=== PATIENT | male | born 1965 | race Caucasian/White ===

== ENCOUNTER → 2017-01-19 | Outpatient (CLI) | payer BC ==
[~2017-01-19] MED LIST: /MOXI40TA OR; ACET65TA OR; ALLE25CA OR; AMBI10TA OR; AMLO10TA PO; ATIV1TAB2 OR; AZEL0.05 OD; BALANCED SALT SOLN OPHTH 15 ML BTL XX SCH; CEFD1CAP8 PO; CEFD300C OR; CIPR0.3S OD; CIPR500T3 PO; CLIN300C2 PO; COLA100C2 OR; DESYREL PO; DULCOLAX PR; HYDR-3713 PO; IBUP800T23 PO; ISOVUE-300 61% 50ML VIAL (Q9967) As Ordered ONE; JARD1TAB PO; LANS15CA PO; LASI40TA OR; LEVA500T PO; METF-414 PO; NORCOTAB PO; No Historical Meds; PERC5TAB6 PO; PERC5TAB8 OR; POLY2.5S OP; PROPARACAINE 0.5% OPHTH SOL 15ML XX SCH; VICO5TAB OR; ZYLO300T OR; [UNRECOGNIZED DRUG - OTHER] PO
--- NOTE | 2017-01-19 17:07 | REP ---
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 Technique: The cannula was placed by Dr. Cordelia Duque and contrast was injected under sequential fluoroscopically obtained spot radiographs. 22 spot radiographs were obtained. Fluoroscopy time: 10 seconds. Findings: Sequential frontal spot radiographs document normal inferior and superior canaliculi. The common canaliculus and nasal lacrimal sac are dilated and obstructed. The nasal lacrimal duct is not opacified. The dilated sac is seen along the medial aspect of the orbit. 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 No filling defect is seen. Signed by Harvey Newsome MD 01/20/2017 08:01 A
== END ==
LOC: M RADPRO 14:10
PROVIDERS: ATTEND Ophthalmology
DX: H04.551 Acquired stenosis of right nasolacrimal duct (principal); Z88.0 Allergy status to penicillin
CPT/HCPCS: 68850; 70170; Q9967

== ENCOUNTER → 2017-07-14 | Outpatient (CLI) | payer BC ==
[~2017-07-14] VITALS: Ht 177.8 cm; Wt 95.3 kg
[~2017-07-14] MED LIST changes: -BALANCED SALT SOLN OPHTH 15 ML BTL XX SCH; +IBUP1TAB7 PO; -IBUP800T23 PO; -ISOVUE-300 61% 50ML VIAL (Q9967) As Ordered ONE; +LEVA1TAB2 PO; -LEVA500T PO; +LIDOCAINE 2% INJ 100 MG/5 ML SDV (FOR ANES.) As Ordered ONE; +NS 1,000 ML IV ONE; +PERC5TAB12 PO; -PERC5TAB6 PO; -PROPARACAINE 0.5% OPHTH SOL 15ML XX SCH; +PROPOFOL 200 MG/20 ML VIAL As Ordered ONE
--- NOTE | 2017-07-14 13:52 | ROOR ---
Patient Name: Brady Soriano Procedure Date: 07/14/2017 1:36 PM Date of : 1965 Age: 52 Room: [facility] Gender: Male Note Status: Finalized Procedure: Upper Endoscopy + Biopsies Indications: Heartburn, Exclusion of Monge's esophagus Providers: Fransisco Perez MD Referring MD: JACINTA SALGADO NP Requesting Provider: Medicines: Monitored Anesthesia Care Complications: No immediate complications. Procedure: Pre-Anesthesia Assessment: - The heart rate, respiratory rate, oxygen saturations, blood pressure, adequacy of pulmonary ventilation, and response to care were monitored throughout the procedure. The Endoscope was introduced through the mouth, and advanced to the second part of duodenum. The upper GI endoscopy was accomplished without difficulty. The patient tolerated the procedure well. Findings: The Z-line was variable and was found 40 cm from the incisors. Multiple biopsies were obtained with cold forceps for evaluation to rule out Monge's Esophagus randomly at the gastroesophageal junction. A small hiatal hernia was present. No other significant abnormalities were identified in a careful examination of the stomach. The exam of the duodenum was otherwise normal. Impression: - Z-line variable, 40 cm from the incisors. - Small hiatal hernia. - Multiple biopsies were obtained at the gastroesophageal junction. - The examination was otherwise normal. Recommendation: - Patient has a contact number available for emergencies. The signs and symptoms of potential delayed complications were discussed with the patient. Return to normal activities tomorrow. Written discharge instructions were provided to the patient. - High fiber diet. - Discharge patient to home. - Follow an antireflux regimen. - Continue present medications. - Await pathology results. - Telephone GI clinic for pathology results in 1 week. - Check Portal Online for Path Results.([email or web address]) - Return to referring physician. - The findings and recommendations were discussed with the patient's family. Fransisco Perez MD Fransisco Perez MD 07/14/2017 1:52:14 PM This report has been signed electronically. Number of Addenda: 0 Note Initiated On: 07/14/2017 1:36 PM Estimated Blood Loss: Estimated blood loss: none.
--- NOTE | 2017-07-14 14:06 | ROOR ---
Patient Name: Brady Soriano Procedure Date: 07/14/2017 1:37 PM Date of : 1965 Age: 52 Room: [facility] Gender: Male Note Status: Finalized Procedure: Total Colonoscopy to Cecum Indications: Screening for colorectal malignant neoplasm Providers: Fransisco Perez MD Referring MD: JACINTA SALGADO NP Requesting Provider: Medicines: Monitored Anesthesia Care Complications: No immediate complications. Procedure: Pre-Anesthesia Assessment: - The heart rate, respiratory rate, oxygen saturations, blood pressure, adequacy of pulmonary ventilation, and response to care were monitored throughout the procedure. The Colonoscope was introduced through the anus and advanced to the cecum, identified by appendiceal orifice and ileocecal valve. The colonoscopy was performed without difficulty. The patient tolerated the procedure well. The quality of the bowel preparation was good. Findings: The perianal and digital rectal examinations were normal. Non-bleeding internal hemorrhoids were found during retroflexion. The hemorrhoids were small and Grade I (internal hemorrhoids that do not prolapse). No other significant abnormalities were identified in a careful examination of the remainder of the colon. The exam was otherwise without abnormality on direct and retroflexion views. Impression: - Non-bleeding internal hemorrhoids. - The examination was otherwise normal on direct and retroflexion views. - No specimens collected. - The exam was otherwise normal to the cecum. Recommendation: - Patient has a contact number available for emergencies. The signs and symptoms of potential delayed complications were discussed with the patient. Return to normal activities tomorrow. Written discharge instructions were provided to the patient. - High fiber diet. - Discharge patient to home. - Continue present medications. - Repeat colonoscopy in 10 years for screening purposes. - Return to referring physician. - The findings and recommendations were discussed with the patient's family. Fransisco Perez MD Fransisco Perez MD 07/14/2017 2:06:08 PM This report has been signed electronically. Number of Addenda: 0 Note Initiated On: 07/14/2017 1:37 PM Estimated Blood Loss: Estimated blood loss: none.
[2017-07-14 14:40] VITALS: BP 117/62
== END | disposition home or self-care (01) ==
LOC: M OPP 12:01
PROVIDERS: ATTEND Internal Medicine Gastroenterology
DX: Z12.11 Encounter for screening for malignant neoplasm of colon (principal); K64.0 First degree hemorrhoids; R12 Heartburn; K22.8 Other specified diseases of esophagus; K44.9 Diaphragmatic hernia without obstruction or gangrene; K21.9 Gastro-esophageal reflux disease without esophagitis; Z85.72 Personal history of non-Hodgkin lymphomas; E11.9 Type 2 diabetes mellitus without complications; Z92.21 Personal history of antineoplastic chemotherapy; Z88.0 Allergy status to penicillin; Z79.84 Long term (current) use of oral hypoglycemic drugs; Z79.899 Other long term (current) drug therapy; Z87.2 Personal history of diseases of the skin and subcutaneous tissue
CPT/HCPCS: 43239; 88305; G0121

== ENCOUNTER → 2017-09-15 | Outpatient (REF) | payer BC ==
[~2017-09-15] MED LIST changes: -LIDOCAINE 2% INJ 100 MG/5 ML SDV (FOR ANES.) As Ordered ONE; -NS 1,000 ML IV ONE; -PROPOFOL 200 MG/20 ML VIAL As Ordered ONE
== END ==
LOC: M LAB REF 11:57
PROVIDERS: ATTEND Internal Medicine
DX: M10.9 Gout, unspecified (principal)

== ENCOUNTER → 2017-11-28 | Outpatient (REF) | payer BC | LOC: M SFHCLERA 14:44 | DX: J00 Acute nasopharyngitis [common cold] (principal) ==

== ENCOUNTER → 2020-10-01 | Outpatient (REF) | payer BC ==
[~2020-10-01] MED LIST changes: -/MOXI40TA OR; +AVEL1TAB2 OR; -CIPR0.3S OD; +CIPR0.3S6 OD; +HYDR-3715 PO; -NORCOTAB PO
[2020-10-01 18:20] LABS: MALB URINE SIEMENS < 5.0 MG/L; MAU/CREAT RATIO 6.4 MCG/MG (0.0-30.0)
== END ==
LOC: M LAB REF 16:57
PROVIDERS: ATTEND Nurse Practitioner Family
DX: E11.65 Type 2 diabetes mellitus with hyperglycemia (principal)

== ENCOUNTER → 2020-11-20 | Outpatient (REF) | payer BC ==
[2020-11-20 09:17] LABS: BASO % 0.7 % (0.0-1.0); EOS # 0.1 10^3/uL (0.0-0.5); EOS % 1.5 % (0.0-3.0); HEMATOCRIT 46.9 % (42.0-52.0); HEMOGLOBIN 15.1 g/dl (13.5-17.5); LYMPH # 2.2 10^3/uL (1.5-5.0); LYMPH % 36.5 % (24.0-44.0); MEAN CORPUSCULAR HEMOGLOBIN 28.9 pg (27.0-33.0); MEAN CORPUSCULAR HGB CONC 32.2 g/dl (32.0-36.5); MEAN CORPUSCULAR VOLUME 89.7 fl (80.0-96.0); MONO # 0.5 10^3/uL (0.0-0.8); MONO % 8.6 % (0.0-5.0); NEUTROPHILS # 3.1 10^3/uL (1.5-8.5); NEUTROPHILS % 51.7 % (36.0-66.0); PLATELET COUNT, AUTOMATED 202 10^3/uL (150-450); RED BLOOD COUNT 5.23 10^6/uL (4.30-6.10)
[2020-11-20 09:25] LABS: ALT/SGPT 38 U/L (12-78); BILIRUBIN,TOTAL 0.3 MG/DL (0.2-1.0); BLOOD UREA NITROGEN 14 MG/DL (7-18); CALCIUM LEVEL 8.8 MG/DL (8.5-10.1); CARBON DIOXIDE LEVEL 26 MEQ/L (21-32); CHLORIDE LEVEL 106 MEQ/L (98-107); CREATININE FOR GFR 0.81 MG/DL (0.70-1.30); GLOMERULAR FILTRATION RATE > 60.0 (>56); GLUCOSE, FASTING 151 MG/DL (70-100); LDH LACTATE DEHYDROGENASE 124 U/L (87-241); POTASSIUM SERUM 4.3 MEQ/L (3.5-5.1); SODIUM LEVEL 140 MEQ/L (136-145); TOTAL PROTEIN 5.9 GM/DL (6.4-8.2)
== END ==
LOC: M LAB REF 08:28
PROVIDERS: ATTEND Internal Medicine Hematology
DX: C82.13 Follicular lymphoma grade II, intra-abdominal lymph nodes (principal)

== ENCOUNTER → 2020-11-28 | Outpatient (CLI) | payer BC ==
[~2020-11-28] MED LIST changes: +GASTROGRAFIN SOLUTION 30ML (Q9963) As Ordered ONE; +ISOVUE-370 76% 100ML VIAL As Ordered ONE
--- NOTE | 2020-11-29 08:12 | REP ---
INDICATION: LYMPHOMA. Follow-up. COMPARISON: Comparison CT study of the neck is from May 07, 2016.. TECHNIQUE: 100 mL of intravenous Isovue 370 is administered. Helical scanning is acquired and 3 mm axial images re-formatted. Coronal and sagittal MPR images are provided. FINDINGS: Visualized paranasal sinuses are clear. No intraorbital abnormality is seen. Parotid and submandibular glands are normal and symmetric. There are scattered normal size cervical lymph nodes bilaterally. There is no evidence of lymphadenopathy. Thyroid lobes are normal and symmetric. Visualized scattered normal sized lymph nodes are unchanged from the 2016 prior study. Lung apices are clear. No bony destructive lesion is appreciated. Glottic and subglottic airway are unremarkable. Floor of mouth and tongue base appear intact. No tonsillar or peritonsillar abnormality is appreciated. No significant vascular abnormality is seen. Visualized intracranial structures are unremarkable. IMPRESSION: No neck mass or adenopathy seen. <Electronically signed by Lonny Newsome > 11/29/20 [id number]
--- NOTE | 2020-11-29 08:43 | REP ---
INDICATION: LYMPHOMA COMPARISON: 05/07/2016 TECHNIQUE: Axial contrast enhanced images from the thoracic inlet to the upper abdomen with coronal and sagittal reformations using 100 ml Isovue 370 intravenous contrast material. This CT examination was performed using the following dose reduction techniques: Automated exposure control, adjustment of mA and/or kv according to the patient's size, and use of iterative reconstruction technique. FINDINGS: Bilateral lung beard are well aerated and relatively clear. Minimal scattered scarring noted along with stable 4 mm nodule in the periphery of the left lower lobe (image 63) unchanged compared to 2016. No new significant nodule or mass lesion. No consolidation. No effusion. No pneumothorax. Tracheobronchial tree is patent. No axillary, hilar, or mediastinal adenopathy is appreciated. Further evaluation of the mediastinum demonstrates normal thoracic aorta and pulmonary vasculature. Atherosclerotic changes to the coronary arteries noted without cardiomegaly or pericardial effusion. Thyroid gland is grossly normal by CT. Musculoskeletal structures are intact and without acute osseous abnormality. Bilateral adrenal glands are normal. IMPRESSION: No acute mediastinal or pleuroparenchymal process. No adenopathy. <Electronically signed by Armin Farnsworth > 11/29/20 [id number]
--- NOTE | 2020-11-29 08:47 | REP ---
INDICATION: LYMPHOMA. COMPARISON: None TECHNIQUE: Axial contrast-enhanced images from the lung bases to the pubic symphysis using 100 cc Isovue 370 intravenous contrast material. Delayed images of the abdomen obtained along with coronal and sagittal reformations.. This CT examination was performed using the following dose reduction techniques: Automated exposure control, adjustment of mA and/or kv according to the patient's size, and the use of iterative reconstruction technique. FINDINGS: Liver demonstrates mild fatty infiltration without focal hepatic lesion. Spleen, pancreas, bilateral adrenal glands and kidneys are normal. Cholelithiasis suggested without acute cholecystitis.. The enteric system including stomach, small, and large bowel appears normal. No evidence for obstruction or acute inflammatory process. Normal terminal ileum and appendix are identified in the right lower quadrant. Few scattered diverticula noted without acute diverticulitis. Pelvis demonstrates normal bladder and age-appropriate prostate/seminal vesicles. No ascites. No free air. No intraperitoneal or retroperitoneal adenopathy. Few stable mildly prominent bilateral inguinal lymph nodes measure up to 10.5 mm short axis diameter. Abdominal aorta and vasculature appear normal. Musculoskeletal structures demonstrate stable chronic degenerative changes including chronic L5 spondylolysis with grade 1 spondylolisthesis. IMPRESSION: 1. No acute abdominopelvic pathology appreciated. No ascites or adenopathy. 2. Mild hepatosteatosis. 3. Cholelithiasis. 4. Chronic degenerative changes to the lumbosacral spine including bilateral L5 spondylolysis with grade 1 spondylolisthesis. <Electronically signed by Armin Farnsworth > 11/29/20 [id number]
== END ==
LOC: M RAD 15:25
PROVIDERS: ATTEND Internal Medicine Hematology
DX: K76.0 Fatty (change of) liver, not elsewhere classified (principal); M43.16 Spondylolisthesis, lumbar region; C82.13 Follicular lymphoma grade II, intra-abdominal lymph nodes; K80.80 Other cholelithiasis without obstruction
CPT/HCPCS: 70491; 71260; 74177; Q9963; Q9967

== ENCOUNTER → 2021-10-15 | Outpatient (CLI) | payer BC ==
[~2021-10-15] MED LIST changes: +BYDU2INJ7 SC; -GASTROGRAFIN SOLUTION 30ML (Q9963) As Ordered ONE; -ISOVUE-370 76% 100ML VIAL As Ordered ONE; +LISI10TA22 PO
== END ==
LOC: M LABSMTC 10:30
PROVIDERS: ATTEND Anesthesiology
DX: Z01.812 Encounter for preprocedural laboratory examination (principal); Z20.822 Contact with and (suspected) exposure to COVID-19

== ENCOUNTER 2021-10-20 08:01 | Day surgery (SDC) | payer BC ==
[~2021-10-20] VITALS: Ht 177.8 cm; Wt 101.8 kg
[~2021-10-20 08:01] MED LIST changes: -CEFD1CAP8 PO; +CEFD300C41 PO; +NS 1,000 ML IV ONE
[2021-10-20] MEDS ORDERED: fentaNYL 100 MCG/2 ML INJECTION As Ordered ONE (08:56)
[2021-10-20] MEDS ORDERED: propofoL 200 MG/20 ML VIAL As Ordered ONE (09:25)
[2021-10-20] MEDS ORDERED: LIDOCAINE 2% 100MG/5ML SDV (FOR ANES.) As Ordered ONE (09:25)
[2021-10-20 10:06] VITALS: BP 116/73
== END 2021-10-20 10:20 | disposition home or self-care (01) ==
LOC: M OPP 08:01
PROVIDERS: ATTEND Internal Medicine Gastroenterology
DX: Z12.11 Encounter for screening for malignant neoplasm of colon (principal); Z83.71 Family history of colonic polyps; K57.30 Diverticulosis of large intestine without perforation or abscess without bleeding; K64.0 First degree hemorrhoids; K22.89 Other specified disease of esophagus; K44.9 Diaphragmatic hernia without obstruction or gangrene; R12 Heartburn; Z79.84 Long term (current) use of oral hypoglycemic drugs; Z79.899 Other long term (current) drug therapy; Z88.0 Allergy status to penicillin; Z92.21 Personal history of antineoplastic chemotherapy; C82.90 Follicular lymphoma, unspecified, unspecified site
CPT/HCPCS: 45378; 88305; J3010

== ENCOUNTER → 2021-10-30 | Outpatient (REF) | payer BC ==
[~2021-10-30] MED LIST changes: +CEFD1CAP8 PO; -CEFD300C41 PO; -NS 1,000 ML IV ONE
[2021-10-30 10:10] LABS: CREATININE, URINE 74.9 MG/DL; MALB URINE SIEMENS < 5.0 MG/L; MAU/CREAT RATIO 6.6 MCG/MG (0.0-30.0)
== END ==
LOC: M LAB REF 09:12
PROVIDERS: ATTEND Internal Medicine Endocrinology, Diabetes & Metabolism
DX: E11.65 Type 2 diabetes mellitus with hyperglycemia (principal)

== ENCOUNTER → 2022-01-20 | Outpatient (REF) | payer BC ==
[~2022-01-20] MED LIST changes: -CEFD1CAP8 PO; +CEFD300C41 PO
[2022-01-20 10:25] LABS: BASO % 0.3 % (0.0-1.0); EOS # 0.1 10^3/uL (0.0-0.5); EOS % 0.5 % (0.0-3.0); HEMATOCRIT 46.7 % (42.0-52.0); LYMPH # 2.8 10^3/uL (1.5-5.0); LYMPH % 25.5 % (24.0-44.0); MEAN CORPUSCULAR HEMOGLOBIN 28.9 pg (27.0-33.0); MEAN CORPUSCULAR HGB CONC 32.1 g/dl (32.0-36.5); MONO # 0.7 10^3/uL (0.0-0.8); MONO % 6.2 % (2.0-8.0); NEUTROPHILS # 7.3 10^3/uL (1.5-8.5); NEUTROPHILS % 66.2 % (36.0-66.0); PLATELET COUNT, AUTOMATED 234 10^3/uL (150-450); RED BLOOD COUNT 5.19 10^6/uL (4.30-6.10); WHITE BLOOD COUNT 11.1 10^3/uL (4.0-10.0)
[2022-01-20 10:26] LABS: ALBUMIN 3.9 GM/DL (3.2-5.2); ALT/SGPT 40 U/L (12-78); BILIRUBIN,TOTAL 0.3 MG/DL (0.2-1.0); BLOOD UREA NITROGEN 20 MG/DL (7-18); CALCIUM LEVEL 9.2 MG/DL (8.5-10.1); CARBON DIOXIDE LEVEL 26 MEQ/L (21-32); CHLORIDE LEVEL 105 MEQ/L (98-107); GLOMERULAR FILTRATION RATE > 60.0 (>56); GLUCOSE, FASTING 245 MG/DL (70-100); LDH LACTATE DEHYDROGENASE 109 U/L (87-241); POTASSIUM SERUM 4.8 MEQ/L (3.5-5.1); SODIUM LEVEL 138 MEQ/L (136-145); TOTAL PROTEIN 6.1 GM/DL (6.4-8.2)
== END ==
LOC: M LAB REF 09:24
PROVIDERS: ATTEND Nurse Practitioner Family
DX: C82.13 Follicular lymphoma grade II, intra-abdominal lymph nodes (principal)

== ENCOUNTER → 2022-12-03 | Outpatient (CLI) | payer BC | LOC: M WUC 14:17 | PROVIDERS: ATTEND Physician Assistant Medical | DX: R05.9 Cough, unspecified (principal) ==

== ENCOUNTER → 2023-01-07 | Outpatient (CLI) | payer BC | LOC: M RAD 15:49 | PROVIDERS: ATTEND Physician Assistant | DX: J30.9 Allergic rhinitis, unspecified (principal) ==

== ENCOUNTER → 2023-01-22 | Outpatient (REF) | payer BC ==
[2023-01-22 08:57] LABS: BASO % 0.4 % (0.0-1.0); EOS # 0.1 10^3/uL (0.0-0.5); EOS % 1.2 % (0.0-3.0); HEMATOCRIT 49.8 % (42.0-52.0); HEMOGLOBIN 15.3 g/dl (13.5-17.5); LYMPH # 2.2 10^3/uL (1.5-5.0); LYMPH % 30.1 % (24.0-44.0); MEAN CORPUSCULAR HEMOGLOBIN 27.5 pg (27.0-33.0); MEAN CORPUSCULAR HGB CONC 30.7 g/dl (32.0-36.5); MEAN CORPUSCULAR VOLUME 89.4 fl (80.0-96.0); MONO # 0.5 10^3/uL (0.0-0.8); MONO % 6.9 % (2.0-8.0); NEUTROPHILS # 4.5 10^3/uL (1.5-8.5); NEUTROPHILS % 60.5 % (36.0-66.0); PLATELET COUNT, AUTOMATED 243 10^3/uL (150-450); RED BLOOD COUNT 5.57 10^6/uL (4.30-6.10); WHITE BLOOD COUNT 7.4 10^3/uL (4.0-10.0)
[2023-01-22 09:02] LABS: LDH LACTATE DEHYDROGENASE 133 U/L (120-246)
[2023-01-22 09:03] LABS: ALBUMIN 4.1 G/DL (3.2-5.2); ALKALINE PHOSPHATASE 74 U/L (46-116); ALT/SGPT 26 U/L (7.0-40); AST/SGOT 11 U/L (<34); BILIRUBIN,TOTAL 0.3 MG/DL (0.3-1.2); BLOOD UREA NITROGEN 14 MG/DL (9-23); CALCIUM LEVEL 9.2 MG/DL (8.5-10.1); CARBON DIOXIDE LEVEL 30 MMOL/L (20-31); CHLORIDE LEVEL 105 MMOL/L (98-107); CREATININE FOR GFR 0.72 MG/DL (0.70-1.30); GLOMERULAR FILTRATION RATE > 60.0 (>56); GLUCOSE, FASTING 196 MG/DL (60-100); POTASSIUM SERUM 4.7 MMOL/L (3.5-5.1); SODIUM LEVEL 140 MMOL/L (136-145)
== END ==
LOC: M LAB REF 08:28
PROVIDERS: ATTEND Internal Medicine Hematology
DX: C82.90 Follicular lymphoma, unspecified, unspecified site (principal)

== ENCOUNTER 2023-03-29 10:52 | Day surgery (SDC) | payer BC ==
[~2023-03-29] VITALS: Ht 175.3 cm; Wt 96.6 kg
[~2023-03-29 10:52] MED LIST changes: +CIPR0.3S37 OD; -CIPR0.3S6 OD; +TRUL0.5I
[2023-03-29] MEDS ORDERED: COCAINE 4% 4ML NASAL SOLUTION BTL As Ordered ONE (12:43)
[2023-03-29] MEDS ORDERED: OXYMETAZOLINE 0.05% NASAL SPRAY (AFRIN) As Ordered ONE ×3 (12:43→14:59)
[2023-03-29] MEDS ORDERED: LIDOCAINE W/EPINEPHRINE 1% 20ML VIAL As Ordered ONE (12:43)
[2023-03-29] MEDS ORDERED: ACETAMINOPHEN 1000MG 100ML IV BAG As Ordered ONE (13:37)
[2023-03-29] MEDS ORDERED: MIDAZOLAM INJ 2MG/2ML VIAL As Ordered ONE (13:37)
[2023-03-29] MEDS ORDERED: ROCURONIUM BROMIDE 50MG/5ML VIAL As Ordered ONE (13:37)
[2023-03-29] MEDS ORDERED: LIDOCAINE 2% 100MG/5ML SDV (FOR ANES.) As Ordered ONE (13:37)
[2023-03-29] MEDS ORDERED: ONDANSETRON 4MG 2ML VIAL As Ordered ONE (13:37)
[2023-03-29] MEDS ORDERED: fentaNYL 250 MCG/5 ML INJECTION As Ordered ONE (13:37)
[2023-03-29] MEDS ORDERED: SUGAMMADEX SODIUM 500 MG/5 ML VIAL (BRIDION) As Ordered ONE (13:37)
[2023-03-29] MEDS ORDERED: propofoL 200 MG/20 ML VIAL As Ordered ONE (13:37)
[2023-03-29] MEDS ORDERED: LABETALOL 100MG/20ML VIAL As Ordered ONE (13:46)
[2023-03-29] MEDS ORDERED: HYDROmorphone HCL 2MG/ML 1ML VIAL As Ordered ONE (14:43)
[2023-03-29] MEDS ORDERED: fentaNYL 100 MCG/2 ML INJECTION IV PRN (15:10)
[2023-03-29] MEDS ORDERED: HYDROMORPHONE HCL 0.5 MG/ 0.5 ML SYRINGE IV PRN (15:10)
[2023-03-29] MEDS ORDERED: ONDANSETRON 4MG 2ML VIAL IV PRN ×2 (15:10→16:15)
[2023-03-29] MEDS ORDERED: INSULIN LISPRO (NovoLOG) PER UNIT SC PRN (15:10)
[2023-03-29] MEDS ORDERED: LR 1,000 ML IV SCH ×2 (15:10→16:15)
[2023-03-29] MEDS ORDERED: oxyCODONE 5MG TAB PO PRN (15:10)
[2023-03-29] MEDS ORDERED: ANEXSIA, NORCO 7.5MG/325MG TABLET(HYDROCODONE/APAP) PO PRN (16:15)
[2023-03-29] MEDS ORDERED: MORPHINE 10 MG/ML 1ML VIAL IV PRN (16:15)
[2023-03-29 16:45] VITALS: BP 144/76
== END 2023-03-29 16:55 | disposition home or self-care (01) ==
LOC: M SDC 10:52
PROVIDERS: ATTEND Otolaryngology
DX: J32.9 Chronic sinusitis, unspecified (principal); J34.2 Deviated nasal septum; J34.3 Hypertrophy of nasal turbinates; I10 Essential (primary) hypertension; E11.9 Type 2 diabetes mellitus without complications; K21.9 Gastro-esophageal reflux disease without esophagitis; M19.90 Unspecified osteoarthritis, unspecified site; Z85.72 Personal history of non-Hodgkin lymphomas; K22.70 Barrett's esophagus without dysplasia; Z92.21 Personal history of antineoplastic chemotherapy; Z88.0 Allergy status to penicillin; Z79.899 Other long term (current) drug therapy; Z79.84 Long term (current) use of oral hypoglycemic drugs
CPT/HCPCS: 30130; 30520; 31201; 31257; 31267; 31296; 61782; 88305; A6024; C9143; J0131; J1100; J1170; J2250; J2405; J3010

== ENCOUNTER → 2023-12-15 | Outpatient (REF) | payer BC ==
[~2023-12-15] MED LIST changes: +CEFD1CAP9 PO; -CEFD300C41 PO
== END ==
LOC: M LAB REF 16:29
PROVIDERS: ATTEND Internal Medicine
DX: S70.361A Insect bite (nonvenomous), right thigh, initial encounter (principal); Y92.009 Unspecified place in unspecified non-institutional (private) residence as the place of occurrence of the external cause; W57.XXXA Bitten or stung by nonvenomous insect and other nonvenomous arthropods, initial encounter

== ENCOUNTER → 2024-01-29 | Outpatient (REF) | payer BC ==
[2024-01-29 07:53] LABS: BASO % 0.5 % (0.0-1.0); EOS # 0.1 10^3/uL (0.0-0.5); EOS % 0.9 % (0.0-3.0); HEMOGLOBIN 14.7 g/dl (13.5-17.5); LYMPH % 35.2 % (24.0-44.0); MEAN CORPUSCULAR HEMOGLOBIN 28.8 pg (27.0-33.0); MONO # 0.5 10^3/uL (0.0-0.8); MONO % 8.1 % (2.0-8.0); NEUTROPHILS % 54.9 % (36.0-66.0); PLATELET COUNT, AUTOMATED 207 10^3/uL (150-450); RED BLOOD COUNT 5.11 10^6/uL (4.30-6.10); WHITE BLOOD COUNT 5.5 10^3/uL (4.0-10.0)
[2024-01-29 08:01] LABS: LDH LACTATE DEHYDROGENASE 130 U/L (120-246)
[2024-01-29 08:02] LABS: ALBUMIN 3.9 G/DL (3.2-5.2); ALKALINE PHOSPHATASE 66 U/L (46-116); ALT/SGPT 22 U/L (7.0-40); AST/SGOT 8 U/L (<34); BILIRUBIN,TOTAL 0.4 MG/DL (0.3-1.2); BLOOD UREA NITROGEN 16 MG/DL (9-23); CALCIUM LEVEL 8.3 MG/DL (8.5-10.1); CARBON DIOXIDE LEVEL 28 MMOL/L (20-31); CHLORIDE LEVEL 107 MMOL/L (98-107); CREATININE FOR GFR 0.77 MG/DL (0.70-1.30); GLOMERULAR FILTRATION RATE > 60.0 (>56); GLUCOSE, FASTING 122 MG/DL (60-100); POTASSIUM SERUM 4.4 MMOL/L (3.5-5.1); SODIUM LEVEL 138 MMOL/L (136-145); TOTAL PROTEIN 5.6 G/DL (5.7-8.2)
== END ==
LOC: M LAB REF 07:37
PROVIDERS: ATTEND Registered Nurse
DX: C82.90 Follicular lymphoma, unspecified, unspecified site (principal)

== ENCOUNTER → 2024-04-21 | Outpatient (REF) | payer BC | LOC: M LAB REF 16:25 | PROVIDERS: ATTEND Physician Assistant Medical | DX: H02.402 Unspecified ptosis of left eyelid (principal) ==

== ENCOUNTER → 2024-04-21 | Outpatient (CLI) | payer BC | LOC: M RAD 13:44 | PROVIDERS: ATTEND Physician Assistant Medical | DX: H01.8 Other specified inflammations of eyelid (principal) ==

== ENCOUNTER → 2024-05-14 | Outpatient (CLI) | payer BC | LOC: M RAD 10:07 | PROVIDERS: ATTEND Physician Assistant | DX: S93.601A Unspecified sprain of right foot, initial encounter (principal); W18.30XA Fall on same level, unspecified, initial encounter; Y92.009 Unspecified place in unspecified non-institutional (private) residence as the place of occurrence of the external cause ==

== ENCOUNTER → 2024-05-18 | Outpatient (CLI) | payer BC | LOC: M PLARAD 14:25 | PROVIDERS: ATTEND Physician Assistant Medical | DX: H02.402 Unspecified ptosis of left eyelid (principal) ==

== ENCOUNTER → 2024-09-18 | Outpatient (CLI) | payer BC | LOC: M PLARAD 13:00 | PROVIDERS: ATTEND Internal Medicine | DX: C82.90 Follicular lymphoma, unspecified, unspecified site (principal) | CPT/HCPCS: 78815; A9552 ==

== ENCOUNTER → 2024-11-06 | Outpatient (REF) | payer BC ==
[2024-11-06 06:15] LABS: BASO % 0.7 % (0.0-1.0); EOS # 0.1 10^3/uL (0.0-0.5); EOS % 1.1 % (0.0-3.0); HEMATOCRIT 41.7 % (42.0-52.0); HEMOGLOBIN 13.7 g/dl (13.5-17.5); LYMPH # 1.5 10^3/uL (1.5-5.0); LYMPH % 34.3 % (24.0-44.0); MEAN CORPUSCULAR HEMOGLOBIN 28.8 pg (27.0-33.0); MEAN CORPUSCULAR HGB CONC 32.9 g/dl (32.0-36.5); MEAN CORPUSCULAR VOLUME 87.6 fl (80.0-96.0); MONO # 0.8 10^3/uL (0.0-0.8); MONO % 18.3 % (2.0-8.0); NEUTROPHILS % 45.4 % (36.0-66.0); PLATELET COUNT, AUTOMATED 120 10^3/uL (150-450); RED BLOOD COUNT 4.76 10^6/uL (4.30-6.10); WHITE BLOOD COUNT 4.4 10^3/uL (4.0-10.0)
== END ==
LOC: M LAB REF 06:08
PROVIDERS: ATTEND Internal Medicine
DX: C82.18 Follicular lymphoma grade II, lymph nodes of multiple sites (principal)

== ENCOUNTER 2024-12-24 16:37 | Emergency (ER) | payer BC ==
[~2024-12-24] VITALS: Ht 175.3 cm; Wt 89.3 kg
[2024-12-24 16:46] VITALS: BP 111/54; TEMP 100.4; O2SAT 96
[2024-12-24] MEDS ORDERED: ATOR1TAB19 (16:53)
[2024-12-24] MEDS ORDERED: MUCI1LIQ3 PO (16:53)
[2024-12-24 17:20] LABS: BASO % 0.2 % (0.0-1.0); HEMATOCRIT 38.7 % (42.0-52.0); LYMPH # 1.1 10^3/uL (1.5-5.0); LYMPH % 25.4 % (24.0-44.0); MEAN CORPUSCULAR HEMOGLOBIN 28.8 pg (27.0-33.0); MEAN CORPUSCULAR HGB CONC 33.6 g/dl (32.0-36.5); MEAN CORPUSCULAR VOLUME 85.6 fl (80.0-96.0); MONO # 0.9 10^3/uL (0.0-0.8); MONO % 20.4 % (2.0-8.0); NEUTROPHILS # 2.2 10^3/uL (1.5-8.5); NEUTROPHILS % 53.3 % (36.0-66.0); PLATELET COUNT, AUTOMATED 114 10^3/uL (150-450); RED BLOOD COUNT 4.52 10^6/uL (4.30-6.10); WHITE BLOOD COUNT 4.2 10^3/uL (4.0-10.0)
[2024-12-24 17:53] LABS: BLOOD UREA NITROGEN 21 MG/DL (9-23); CALCIUM LEVEL 8.4 MG/DL (8.5-10.1); CARBON DIOXIDE LEVEL 26 MMOL/L (20-31); CHLORIDE LEVEL 99 MMOL/L (98-107); CREATININE FOR GFR 0.92 MG/DL (0.70-1.30); GLOMERULAR FILTRATION RATE > 60.0 (>56); GLUCOSE, FASTING 222 MG/DL (60-100); SODIUM LEVEL 135 MMOL/L (136-145)
[2024-12-24] MEDS ORDERED: OSEL75CA PO (18:43)
== END 2024-12-24 18:55 | disposition home or self-care (01) ==
LOC: M ED 16:37
DX: J09.X2 Influenza due to identified novel influenza A virus with other respiratory manifestations (principal); I25.119 Atherosclerotic heart disease of native coronary artery with unspecified angina pectoris; E11.9 Type 2 diabetes mellitus without complications; I10 Essential (primary) hypertension; C82.90 Follicular lymphoma, unspecified, unspecified site; Z88.0 Allergy status to penicillin; Z79.4 Long term (current) use of insulin; Z79.84 Long term (current) use of oral hypoglycemic drugs; Z79.899 Other long term (current) drug therapy

== ENCOUNTER 2024-12-30 12:57 | Emergency (ER) | payer BC ==
[~2024-12-30] VITALS: Ht 175.3 cm; Wt 87.6 kg
[~2024-12-30 12:57] MED LIST changes: +ATOR1TAB19; +MUCI1LIQ3 PO; +OSEL75CA PO
[2024-12-30] MEDS ORDERED: ACET-907 PO (13:08)
[2024-12-30] MEDS: IPRATROPIUM 0.5MG/ALBUTEROL 2.5MG INH SOL UD 3ML (DUONEB) NEB ONE (13:38)
[2024-12-30 13:40] LABS: HEMATOCRIT 38.7 % (42.0-52.0); HEMOGLOBIN 12.5 g/dl (13.5-17.5); MEAN CORPUSCULAR HEMOGLOBIN 28.2 pg (27.0-33.0); MEAN CORPUSCULAR HGB CONC 32.3 g/dl (32.0-36.5); MEAN CORPUSCULAR VOLUME 87.2 fl (80.0-96.0); PLATELET COUNT, AUTOMATED 168 10^3/uL (150-450); RED BLOOD COUNT 4.44 10^6/uL (4.30-6.10); WHITE BLOOD COUNT 7.2 10^3/uL (4.0-10.0)
[2024-12-30] MEDS ORDERED: ALBU8.5H INH (14:18)
[2024-12-30] MEDS ORDERED: MOXI1TAB PO (14:18)
[2024-12-30 14:25] VITALS: TEMP 97.5
[2024-12-30 14:30] VITALS: BP 132/56; O2SAT 96
== END 2024-12-30 14:32 | disposition home or self-care (01) ==
LOC: M ED 12:57
DX: J09.X2 Influenza due to identified novel influenza A virus with other respiratory manifestations (principal); J18.9 Pneumonia, unspecified organism; I10 Essential (primary) hypertension; E78.5 Hyperlipidemia, unspecified; Z88.0 Allergy status to penicillin; Z79.1 Long term (current) use of non-steroidal anti-inflammatories (NSAID); Z79.51 Long term (current) use of inhaled steroids; Z79.4 Long term (current) use of insulin; Z79.84 Long term (current) use of oral hypoglycemic drugs; Z79.899 Other long term (current) drug therapy

== ENCOUNTER → 2025-07-31 | Outpatient (REF) | payer BC ==
[~2025-07-31] MED LIST changes: +ACET-907 PO; +ALBU8.5H INH; +AMLO-751 PO; -AMLO10TA PO; -BYDU2INJ7 SC; +EXEN2AUT SC; +MOXI1TAB PO
== END ==
LOC: M LAB REF 17:44
PROVIDERS: ATTEND Nurse Practitioner Adult Health
DX: S91.101A Unspecified open wound of right great toe without damage to nail, initial encounter (principal); X58.XXXA Exposure to other specified factors, initial encounter; Y92.9 Unspecified place or not applicable